=== PATIENT | female | born 1945 | race Caucasian/White ===

== ENCOUNTER → 2024-02-08 10:38 | Outpatient (REF) | payer MEDICARE, OTHER, SELFPAY ==
[2024-02-08 13:21] LABS: FSH 94.5 mIU/ml; Free T4 1.17 ng/dl (0.78-2.19); Prolactin 13.6 ng/ml (3.0-18.6)
[2024-02-08 13:28] LABS: ALT (SGPT) 16 U/L (0-35); AST (SGOT) 26 U/L (14-36); Albumin 4.6 g/dl (3.5-5.0); Alkaline Phosphatase 100 U/L (38-126); Blood Urea Nitrogen 24 mg/dl (7-17); Calcium 9.8 mg/dl (8.4-10.2); Carbon Dioxide 23 mmol/L (22-30); Chloride 100 mmol/L (98-107); Glucose 95 mg/dl (70-99); Potassium 4.4 mmol/L (3.5-5.1); Sodium 133 mmol/L (135-145); Total Bilirubin 0.7 mg/dl (0.2-1.3); Total Protein 7.4 g/dl (6.3-8.2); eGFR 46.33
[2024-02-08 13:35] LABS: TSH 1.78 uIU/ml (0.47-4.68)
[2024-02-08 13:36] LABS: Estradiol 46.6 pg/ml
[2024-02-08 13:54] LABS: Cortisol, Random 10.2 ug/dl
[2024-02-10 01:50] LABS: DHEA Sulfate 66 ug/dL (12-154)
[2024-02-10 05:47] LABS: IGF-1 Z Score Calculation 1.2; Insulin-like Growth Factor I 156 ng/mL (19-210)
[2024-02-10 10:18] LABS: Aldosterone, Serum 14.3 ng/dL; Aldosterone/Renin Activ Ratio 71.5 ratio (<=25.0); Renin Activity Results 0.2 ng/mL/hr
== END ==
LOC: REG 10:38
PROVIDERS: ATTENDING PHYSICIAN Internal Medicine Endocrinology, Diabetes & Metabolism; FAMILY PHYSICIAN Internal Medicine
DX: R09.89 Other specified symptoms and signs involving the circulatory and respiratory systems (principal); D49.7 Neoplasm of unspecified behavior of endocrine glands and other parts of nervous system
CPT/HCPCS: 36415; 80053; 82088; 82533; 82627; 82670; 83001; 83002; 83835; 84146; 84244; 84305; 84439; 84443

== ENCOUNTER → 2024-02-13 13:21 | Outpatient (REF) | payer MEDICARE, OTHER, SELFPAY | LOC: REG 13:21 | PROVIDERS: ATTENDING PHYSICIAN Internal Medicine; FAMILY PHYSICIAN Internal Medicine; REFERRING PHYSICIAN Internal Medicine Endocrinology, Diabetes & Metabolism | DX: I10 Essential (primary) hypertension (principal) | CPT/HCPCS: 36415; 83835 ==

== ENCOUNTER → 2024-02-15 10:45 | Outpatient (REF) | payer MEDICARE, OTHER, SELFPAY | LOC: DHCBC/DCA 10:45 | PROVIDERS: ATTENDING PHYSICIAN Internal Medicine; FAMILY PHYSICIAN Internal Medicine | DX: R07.89 Other chest pain (principal); R94.31 Abnormal electrocardiogram [ECG] [EKG]; I48.0 Paroxysmal atrial fibrillation | CPT/HCPCS: 78452; 93017; A9500; J2785 ==

== ENCOUNTER → 2024-04-28 09:59 | Outpatient (REF) | payer MEDICARE, OTHER, SELFPAY | LOC: RCS 09:59 | PROVIDERS: ATTENDING PHYSICIAN Nurse Practitioner; FAMILY PHYSICIAN Internal Medicine; REFERRING PHYSICIAN Psychiatry & Neurology Neurology | DX: I34.0 Nonrheumatic mitral (valve) insufficiency (principal); I48.0 Paroxysmal atrial fibrillation; I10 Essential (primary) hypertension | CPT/HCPCS: 93306 ==

== ENCOUNTER → 2024-11-07 12:23 | Outpatient (REF) | payer MEDICARE, OTHER, SELFPAY | LOC: RCS 12:23 | PROVIDERS: ATTENDING PHYSICIAN Internal Medicine; FAMILY PHYSICIAN Internal Medicine; REFERRING PHYSICIAN Psychiatry & Neurology Neurology | DX: R94.31 Abnormal electrocardiogram [ECG] [EKG] (principal); I07.1 Rheumatic tricuspid insufficiency; I34.0 Nonrheumatic mitral (valve) insufficiency; I48.11 Longstanding persistent atrial fibrillation | CPT/HCPCS: 93005 ==

== ENCOUNTER → 2025-02-25 14:04 | Outpatient (REF) | payer MEDICARE, OTHER, SELFPAY ==
[2025-02-25 15:22] LABS: Blood Urea Nitrogen 27 mg/dl (7-17); Calcium 10.0 mg/dl (8.4-10.2); Carbon Dioxide 28 mmol/L (22-30); Chloride 103 mmol/L (98-107); Glucose 96 mg/dl (70-99); Potassium 4.2 mmol/L (3.5-5.1); Sodium 137 mmol/L (135-145); eGFR 46.05
== END ==
LOC: REG 14:04
PROVIDERS: ATTENDING PHYSICIAN Internal Medicine; FAMILY PHYSICIAN Internal Medicine
DX: G90.9 Disorder of the autonomic nervous system, unspecified (principal)
CPT/HCPCS: 36415; 80048